=== PATIENT | male | born 1950 | race Caucasian/White ===

== ENCOUNTER 2016-12-14 | Observation (INO) | payer MEDICARE ==
[~2016-12-14] MED LIST: ASPIRIN EC81 MG PO
[2016-12-14 04:06] LABS: HEMOGLOBIN 12.9 gm/dl (14.0-17.5); RED BLOOD COUNT 4.59 M/UL (4.20-5.50); WHITE BLOOD COUNT 7.8 K/UL (4.5-11.0)
[2016-12-14 04:32] LABS: BUN/CREATININE RATIO 16 (0-10)
[2016-12-14] MEDS ORDERED: METOPROLOL SUCC50 MG PO (09:53)
[2016-12-14] MEDS ORDERED: PLAVIX 75 MG TA75 MG PO (09:55)
[2016-12-14] MEDS ORDERED: LIPITOR TAB 2020 MG PO (09:56)
[2016-12-14] MEDS ORDERED: ISOSORBIDE MONO60 MG PO (09:56)
[2016-12-14] MEDS ORDERED: ZANTAC150 MG PO (09:57)
[2016-12-14] MEDS ORDERED: HYDROCODON-ACE1 EAC6 PO (09:57)
[2016-12-14] MEDS ORDERED: KLONOPIN TAB 00.5 MG PO (09:58)
[2016-12-14] MEDS ORDERED: NITROGLYCERIN0.4 MG SL (19:09)
== END 2016-12-14 19:20 | disposition home or self-care (01) ==
PROVIDERS: Specialist/Technologist Athletic Trainer; ADMIT Internal Medicine
DX: R07.89 Other chest pain (principal); I25.10 Atherosclerotic heart disease of native coronary artery without angina pectoris; I12.9 Hypertensive chronic kidney disease with stage 1 through stage 4 chronic kidney disease, or unspecified chronic kidney disease; N18.3 Chronic kidney disease, stage 3 (moderate); E78.5 Hyperlipidemia, unspecified; M54.9 Dorsalgia, unspecified; G89.29 Other chronic pain; F17.210 Nicotine dependence, cigarettes, uncomplicated; Z79.82 Long term (current) use of aspirin; Z79.02 Long term (current) use of antithrombotics/antiplatelets; Z79.891 Long term (current) use of opiate analgesic; Z79.899 Other long term (current) drug therapy; Z95.1 Presence of aortocoronary bypass graft; Z98.61 Coronary angioplasty status; Z85.828 Personal history of other malignant neoplasm of skin; D64.9 Anemia, unspecified
CPT/HCPCS: ECHO; 36415; 70450; 71010; 80053; 80307; 82550; 82553; 83880; 84484; 85025; 85610; 85730; 93005; 93306; 99285; G0378

== ENCOUNTER 2021-02-21 20:41 | Inpatient (IN) | payer MEDICARE, MEDICAID ==
[~2021-02-21] VITALS: Ht 177.8 cm; Wt 77.1 kg
[~2021-02-21 20:41] MED LIST changes: -COREG25 MG PO; -COZAAR 25MG TAB25 MG PO; -LASIX20 MG PO; -LIPITOR40 MG PO; -XARELTO20 MG PO
[2021-02-21 21:12] LABS: HEMOGLOBIN 8.5 gm/dl (14.0-17.5); RED BLOOD COUNT 3.39 M/UL (4.20-5.50); WHITE BLOOD COUNT 17.3 K/UL (4.5-11.0)
[2021-02-21 21:31] LABS: BUN/CREATININE RATIO 23 (0-10)
[2021-02-21 23:54] LABS: BORDETELLA PARAPERTUSSIS Not Detected (Not Detectd); BORDETELLA PERTUSSIS Not Detected (Not Detectd); CHLAMYDIA PNEUMONIAE Not Detected (Not Detectd); CORONAVIRUS HKU1 Not Detected (Not Detectd); CORONAVIRUS NL63 Not Detected (Not Detectd); CORONAVIRUS OC43 Not Detected (Not Detectd); CORONOAVIRUS 229E Not Detected (Not Detectd); HUMAN METAPNEUMOVIRUS Not Detected (Not Detectd); HUMAN RHINOVIRUS/ENTEROVIRUS Not Detected (Not Detectd); INFLUENZA A Not Detected (Not Detectd); INFLUENZA B Not Detected (Not Detectd); MYCOPLASMA PNEUMONIAE Not Detected (Not Detectd); PARAINFLUENZA VIRUS 1 Not Detected (Not Detectd); PARAINFLUENZA VIRUS 2 Not Detected (Not Detectd); PARAINFLUENZA VIRUS 3 Not Detected (Not Detectd); PARAINFLUENZA VIRUS 4 Not Detected (Not Detectd); RESPIRATORY SYNCYTIAL VIRUS Not Detected (Not Detectd)
[2021-02-22 02:05] LABS: SARS-CoV-2 NOT DETECTED (Not Detectd)
[2021-02-22 07:26] LABS: HEMOGLOBIN 8.5 gm/dl (14.0-17.5); RED BLOOD COUNT 3.39 M/UL (4.20-5.50)
[2021-02-22 07:51] LABS: BUN/CREATININE RATIO 21 (0-10)
[2021-02-22 08:09] LABS: WHITE BLOOD COUNT 36.5 K/UL (4.5-11.0)
[2021-02-22] MEDS ORDERED: LIPITOR40 MG PO (09:56)
[2021-02-22] MEDS ORDERED: COZAAR 25MG TAB25 MG PO (10:48)
[2021-02-22] MEDS ORDERED: COREG25 MG PO (10:48)
[2021-02-22] MEDS ORDERED: XARELTO20 MG PO (10:49)
[2021-02-22] MEDS ORDERED: LASIX20 MG PO (10:52)
== END 2021-02-22 11:42 | disposition expired | DRG 871 ==
LOC: ER1 20:41 → CDU 23:36 → CCU 23:36
PROVIDERS: Emergency Medicine; ADMIT Internal Medicine
PROC: 0BH18EZ Insertion of Endotracheal Airway into Trachea, Via Natural or Artificial Opening Endoscopic (ICD-10-PCS; principal; 2021-02-22)
PROC: 5A1935Z Respiratory Ventilation, Less than 24 Consecutive Hours (ICD-10-PCS; principal; 2021-02-22)
PROC: 5A12012 Performance of Cardiac Output, Single, Manual (ICD-10-PCS; principal; 2021-02-22)
PROC: 5A2204Z Restoration of Cardiac Rhythm, Single (ICD-10-PCS; principal; 2021-02-22)
PROC: 3E043XZ Introduction of Vasopressor into Central Vein, Percutaneous Approach (ICD-10-PCS; principal; 2021-02-22)
DX: A41.9 Sepsis, unspecified organism (principal); R65.21 Severe sepsis with septic shock; I50.23 Acute on chronic systolic (congestive) heart failure; I47.2 Ventricular tachycardia; C74.02 Malignant neoplasm of cortex of left adrenal gland; C78.00 Secondary malignant neoplasm of unspecified lung; N17.9 Acute kidney failure, unspecified; I13.0 Hypertensive heart and chronic kidney disease with heart failure and stage 1 through stage 4 chronic kidney disease, or unspecified chronic kidney disease; Z66 Do not resuscitate; R57.0 Cardiogenic shock; I46.9 Cardiac arrest, cause unspecified; I25.5 Ischemic cardiomyopathy; I27.20 Pulmonary hypertension, unspecified; D53.9 Nutritional anemia, unspecified; N18.30 Chronic kidney disease, stage 3 unspecified; I48.0 Paroxysmal atrial fibrillation; Z20.822 Contact with and (suspected) exposure to COVID-19; Z88.2 Allergy status to sulfonamides; Z95.810 Presence of automatic (implantable) cardiac defibrillator; Z95.1 Presence of aortocoronary bypass graft; Z82.49 Family history of ischemic heart disease and other diseases of the circulatory system
CPT/HCPCS: ECHO; 0240U; 31500; 36415; 71045; 71046; 71260; 80048; 80053; 80202; 81001; 82550; 82553; 83605; 83690; 83735; 83874; 83880; 84100; 84439; 84443; 84484; 85025; 85610; 85730; 86140; 87040; 87086; 87633; 92950; 93005; 93306; 94002; 96374; 96375; 99285; C1751; J0171; J0461; J1644; J1720; J2001; J2060; J2250; J2370; J2543; J3370; J3475; J7030; J7040; J7070; Q9967; U0003

== ENCOUNTER → 2021-02-21 | Outpatient (CLI) | payer MEDICARE ==
[~2021-02-21] MED LIST changes: +COREG25 MG PO; +COZAAR 25MG TAB25 MG PO; +HYDROCODON-ACE1 EAC6 PO; +ISOSORBIDE MONO60 MG PO; +KLONOPIN TAB 00.5 MG PO; +LASIX20 MG PO; +LIPITOR40 MG PO; +METOPROLOL SUCC50 MG PO; +NITROGLYCERIN0.4 MG SL; +PLAVIX 75 MG TA75 MG PO; +XARELTO20 MG PO; +ZANTAC150 MG PO
[2021-02-21 09:03] LABS: HEMOGLOBIN 8.3 gm/dl (14.0-17.5); RED BLOOD COUNT 3.31 M/UL (4.20-5.50); WHITE BLOOD COUNT 17.8 K/UL (4.5-11.0)
== END ==
LOC: LAB 08:47
PROVIDERS: Internal Medicine Cardiovascular Disease
DX: Z53.8 Procedure and treatment not carried out for other reasons (principal)
CPT/HCPCS: 36415; 71046; 80048; 85025; U0003